=== PATIENT | male | born 1960 | race Caucasian/White ===

== ENCOUNTER → 2019-02-13 08:51 | Outpatient (CLI) | payer OTHER, SELFPAY ==
--- NOTE | 2019-02-13 | DI.RAD.S_ITS ---
PROCEDURE: XR HAND RT MIN 3V INDICATIONS: SWELLING/PAIN RT HAND TECHNIQUE: 3 views of the hand(s) acquired. COMPARISON: None. FINDINGS: Bones: No dislocations. Carpal bones are normally aligned. No suspicious bony lesions. There is a transverse fracture at the distal radius, and a minimally displaced fracture at the tip of the ulnar styloid process. Soft tissues: No suspicious soft tissue calcifications. IMPRESSION: Distal radius and ulna fractures, with the radius fracture nondisplaced and seen on one view only. Extension of fracture into the articular surface is not documented. Dictated by: Rigo Jaquez M.D. on 02/13/2019 at 9:20 Approved by: Rigo Jaquez M.D. on 02/13/2019 at 9:22
== END ==
PROVIDERS: PCP Family Medicine; Visit Provider Nurse Practitioner Family
DX: S52.91XA Unspecified fracture of right forearm, initial encounter for closed fracture (principal); S52.201A Unspecified fracture of shaft of right ulna, initial encounter for closed fracture; M25.441 Effusion, right hand; M79.641 Pain in right hand; W18.30XD Fall on same level, unspecified, subsequent encounter
CPT/HCPCS: 73130

== ENCOUNTER → 2019-05-07 | Outpatient (CLI) | payer OTHER, SELFPAY ==
--- NOTE | 2019-05-07 | DI.RAD.S_ITS ---
PROCEDURE: XR THORACIC SPINE 3V INDICATIONS: shoulder pain TECHNIQUE: 3 views of the thoracic spine were acquired. COMPARISON: [facility], , CHEST 2 VIEW, 03/16/2012, 12:27. FINDINGS: Bones: Mild height loss of multiple midthoracic vertebral bodies although the exact spinal level unclear. However, this appears unchanged since 03/16/12. Diffuse cervical spondylosis and facet arthropathy. Soft tissues: No paravertebral stripe thickening. IMPRESSION: Unchanged appearance of mild midthoracic vertebral body height loss. If the patient's pain or other symptoms persist, consider further evaluation with MRI Dictated by: Charanjit Harden M.D. on 05/07/2019 at 17:12 Approved by: Charanjit Harden M.D. on 05/07/2019 at 17:14
== END ==
LOC: RAD 16:23
PROVIDERS: PCP Family Medicine; Visit Provider Family Medicine
DX: M25.519 Pain in unspecified shoulder (principal); M54.6 Pain in thoracic spine; R29.890 Loss of height; M47.812 Spondylosis without myelopathy or radiculopathy, cervical region
CPT/HCPCS: 72072

== ENCOUNTER → 2024-08-13 11:31 | Outpatient (CLI) | payer OTHER, SELFPAY ==
--- NOTE | 2024-08-13 11:34 | DI.RAD.S_ITS ---
PROCEDURE: XR HAND RT 2V INDICATIONS: BI HAND PAIN TECHNIQUE: Two views of the right hand acquired. COMPARISON: [facility], , XR HAND RT MIN 3V, 02/13/2019, 8:59. FINDINGS: Bones: Nondisplaced remote avulsion fracture of the ulnar styloid process tip. Joints: Moderate degenerative change 1st CMC and all interphalangeal joints Soft tissues: No soft tissue abnormality. IMPRESSION: Degeneration. Dictated by: Efe Love M.D. on 08/14/2024 at 9:11 Approved by: Efe Love M.D. on 08/14/2024 at 9:12
--- NOTE | 2024-08-13 11:34 | DI.RAD.S_ITS ---
PROCEDURE: XR HAND LT 2V INDICATIONS: BI HAND PAIN TECHNIQUE: Two views of the left hand acquired. COMPARISON: [facility], CR, XR HAND RT MIN 3V, 02/13/2019, 8:59. FINDINGS: Bones: There are no osseous abnormalities Joints: Mild STT 1st CMC degenerative change appreciated. There is moderate degenerative changes in the 1st MCP and all interphalangeal joints. Soft tissues: 2 tiny calcifications are seen near the hamate region. There is mild diffuse soft tissue swelling. IMPRESSION: Degeneration Dictated by: Efe Love M.D. on 08/14/2024 at 9:06 Approved by: Efe Love M.D. on 08/14/2024 at 9:07
== END ==
PROVIDERS: PCP Family Medicine; Referring Provider Family Medicine; Visit Provider Family Medicine
DX: M79.641 Pain in right hand (principal); M79.642 Pain in left hand
CPT/HCPCS: 73120